=== PATIENT | female | born 1940 | race Caucasian/White ===

== ENCOUNTER 2018-07-18 16:35 | Emergency (ER) | payer MEDICARE ==
[2018-07-18 17:11] LABS: BASOPHILS % (AUTO) 0.5 %; EOSINOPHILS % (AUTO) 0.1 %; HGB - HEMOGLOBIN 14.6 g/dL (12.0-16.0); LYMPHOCYTES # (AUTO) 1.1 10^3/uL (1.5-3.5); LYMPHOCYTES % (AUTO) 14.1 %; MEAN CORPUSCULAR HEMOGLOBIN 31.2 pg (27.0-31.0); MEAN CORPUSCULAR HGB CONC 32.8 g/dL (32.0-36.0); MEAN CORPUSCULAR VOLUME 95.2 fL (81.0-99.0); MEAN PLATELET VOLUME 8.9 fL (7.9-10.8); MONOCYTES # (AUTO) 0.4 10^3/uL (0.0-1.0); MONOCYTES % (AUTO) 4.8 %; NEUTROPHILS # (AUTO) 6.5 10^3/uL (1.5-6.6); NEUTROPHILS % (AUTO) 80.5 %; PLT - PLATELET COUNT 213 10^3/uL (130-450); RED BLOOD COUNT 4.68 10^6/uL (4.20-5.40); RED CELL DISTRIBUTION WIDTH 13.6 % (12.0-15.0); WHITE BLOOD COUNT 8.1 x10^3/uL (4.8-10.8)
[2018-07-18 17:28] LABS: ALBUMIN 4.3 g/dL (3.2-5.5); ALBUMIN/GLOBULIN RATIO 1.6 (1.0-2.2); BILIRUBIN,TOTAL 0.7 mg/dL (0.2-1.0); CALCIUM 9.5 mg/dL (8.5-10.3); CREATININE 0.6 mg/dL (0.4-1.0); MAGNESIUM 2.1 mg/dL (1.7-2.8)
--- NOTE | 2018-07-18 17:29 | ED Physician Documentation ---
PD HPI CHEST PAIN - Stated complaint Stated Complaint: RAPID HEART BEAT SINCE 12PM - Chief complaint Chief Complaint: Cardiac - History obtained from History obtained from: Patient - History of Present Illness Timing - onset: Today (since 12pm she felt heart racing and hard. No CP or SOA but was lightheaded.) Review of Systems Ten Systems: 10 systems reviewed and negative Constitutional: denies: Fever, Chills Nose: denies: Rhinorrhea / runny nose, Congestion Cardiac: reports: Palpitations. 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 : Chronic bladder infection HEENT: Other Psych: None Musculoskeletal: Osteoarthritis Derm: None - Past Surgical History Past Surgical History: Yes General: Appendectomy, Other /UTILITIES EQUIPMENT REPAIRER: Hysterectomy HEENT: Cataracts, Other - Present Medications Home Medications: Ambulatory Orders Medication Instructions Recorded Confirmed Multivitamin [One-Daily 1 tab PO BID 05/04/14 05/03/16 Multi-Vitamin] raNITIdine [Zantac] 150 mg PO BID 05/04/14 05/03/16 Rivaroxaban [Xarelto] BID 05/15/16 - Allergies Allergies/Adverse Reactions: Allergies Allergy/AdvReac Type Severity Reaction Status Date / Time codeine AdvReac Emesis Verified 07/18/18 16:51 - Social History Does the pt smoke?: No Smoking Status: Never smoker Does the pt drink ETOH?: Yes Does the pt have substance abuse?: No - Family History Family history: reports: Non contributory - Immunizations Immunizations are current?: No Immunizations: TDAP >10years/unknown - POLST Patient has POLST: Yes POLST Status: Full Code PD ED PE NORMAL - Vitals Vital signs reviewed: Yes - General General: Alert and oriented X 3, No acute distress - HEENT HEENT: PERRL, EOMI - Neck Neck: Supple, no meningeal sign, No bony TTP - Cardiac Cardiac: No murmur, Other (rapid and irregular) - Respiratory Respiratory: No respiratory distress, Clear bilaterally - Abdomen Abdomen: Soft, Non tender - Back Back: No CVA TTP, No spinal TTP - Derm Derm: Normal color, Warm and dry - Extremities Extremities: No edema, No calf tenderness / cord - Neuro Neuro: Alert and oriented X 3, Normal speech - Psych Psych: Normal mood, Normal affect Results - Vitals Vitals: Vital Signs - 24 hr 07/18/18 07/18/18 07/18/18 16:45 17:01 17:39 Temperature 36.4 C L Heart Rate 167 H 159 H 136 H Respiratory 30 H 20 14 Rate Blood Pressure 110/83 H 110/84 H 118/61 O2 Saturation 95 97 96 07/18/18 07/18/18 07/18/18 17:46 18:40 18:42 Temperature Heart Rate 109 H 95 78 Respiratory 16 15 15 Rate Blood Pressure 107/67 111/87 H 109/58 L O2 Saturation 96 97 95 Oxygen O2 Source Room air - EKG (time done) 1647 Rate: Rate (enter#) (166) Rhythm: Atrial fibrillation [place]: Normal, LAD Ischemia: Non specific changes Computer interpretation: Agree with computer 1847 Rate: Rate (enter#) Rhythm: NSR (73), TERE [place]: LAD Intervals: Normal MD QRS: Normal Ischemia: Normal ST segments Computer interpretation: Agree with computer - Labs Labs: Laboratory Tests 07/18/18 07/18/18 07/18/18 16:56 16:56 16:56 WBC 8.1 RBC 4.68 Hgb 14.6 Hct 44.6 MCV 95.2 MCH 31.2 H MCHC 32.8 RDW 13.6 Plt Count 213 MPV 8.9 Neut # (Auto) 6.5 Lymph # (Auto) 1.1 L [place] # (Auto) 0.4 Eos # (Auto) 0.0 Baso # (Auto) 0.0 Absolute Nucleated RBC 0.00 Nucleated RBC % 0.0 Sodium 137 Potassium 3.7 Chloride 98 L Carbon Dioxide 29 Anion Gap 10.0 BUN 14 Creatinine 0.6 Estimated GFR (MDRD) 96 Glucose 145 H Calcium 9.5 Magnesium 2.1 Total Bilirubin 0.7 AST 24 ALT 12 Alkaline Phosphatase 58 Troponin I B-Natriuretic Peptide 108 H Total Protein 7.0 Albumin 4.3 Globulin 2.7 Albumin/Globulin Ratio 1.6 Lipase 25 TSH 07/18/18 07/18/18 16:56 16:56 WBC RBC Hgb Hct MCV MCH MCHC RDW Plt Count MPV Neut # (Auto) Lymph # (Auto) [place] # (Auto) Eos # (Auto) Baso # (Auto) Absolute Nucleated RBC Nucleated RBC % Sodium Potassium Chloride Carbon Dioxide Anion Gap BUN Creatinine Estimated GFR (MDRD) Glucose Calcium Magnesium Total Bilirubin AST ALT Alkaline Phosphatase Troponin I < 0.04 B-Natriuretic Peptide Total Protein Albumin Globulin Albumin/Globulin Ratio Lipase TSH 1.59 PD MEDICAL DECISION MAKING - ED course ED course: 77-year-old presents with acute rapid atrial fibrillation. She was given divided doses of diltiazem and on the second dose of diltiazem she converted to normal sinus rhythm before an ordered procainamide drip was started. Departure - Departure Disposition: Home, Self Care Clinical Impression: Atrial fibrillation Qualifiers: Atrial fibrillation type: paroxysmal Qualified Code(s): I48.0 - Paroxysmal atrial fibrillation Condition: Good Record reviewed to determine appropriate education?: Yes Instructions: Atrial Fibrillation Dc Comments: Follow-up with your physician who will either refer you to a data entry assistant or order an echocardiogram. Return for new or worsening symptoms. Continue your blood thinner.
[2018-07-18] MEDS ORDERED: diltiaZEM INJ 5 MG/ML VIAL IVP STA ×2 (17:30→18:13)
--- NOTE | 2018-07-18 17:51 | XRAY Report ---
Reason: chest pain Procedure Date: 07/18/2018 Accession Number: [id number] / [id number] Procedure: XR - Chest 1 View X-Ray CPT Code: 65896 FULL RESULT: EXAM: CHEST RADIOGRAPHY, PORTABLE 1 VIEW EXAM DATE: 07/18/2018 05:18 PM. CLINICAL HISTORY: Chest pain in a 77-year-old female. COMPARISON: Chest 2 view PA/LAT 05/15/2016 12:59 PM Chest angio 05/04/2016 1:16 AM. TECHNIQUE: 1706 hour AP upright portable view. FINDINGS: Lungs/Pleura: No focal opacities evident. No pleural effusion. No pneumothorax. Mild to moderate hyperinflation, as previously. Mediastinum: Within exam limitations, the cardiomediastinal contour is normal. No adenopathy or pulmonary vascular congestion. Other: Trachea is midline. Osseous structures are unremarkable. IMPRESSION: Mild to moderate hyperinflation, chronic and stable. No pneumonia, CHF or other demonstrated cause for chest pain. RADIA
[2018-07-18] MEDS ORDERED: PROCAINAMIDE 1,000 MG in SODIUM CHLORIDE 0.9% 240 ML IV STA (18:13)
[2018-07-18 19:14] VITALS: BP 101/63
== END 2018-07-18 19:13 | disposition home or self-care (01) ==
LOC: ED 16:35
DX: I48.0 Paroxysmal atrial fibrillation (principal); Z86.711 Personal history of pulmonary embolism; Z79.01 Long term (current) use of anticoagulants
CPT/HCPCS: 36415; 71045; 80053; 83690; 83735; 83880; 84443; 84484; 85025; 93005; 96374; 96376; 99283; 99284; J2690

== ENCOUNTER 2018-12-04 08:00 | Outpatient (CLI) | payer MEDICARE ==
[2018-12-04 13:12] LABS: BASOPHILS % (AUTO) 0.5 %; EOSINOPHILS # (AUTO) 0.1 10^3/uL (0.0-0.7); EOSINOPHILS % (AUTO) 1.2 %; HGB - HEMOGLOBIN 12.9 g/dL (12.0-16.0); LYMPHOCYTES # (AUTO) 1.4 10^3/uL (1.5-3.5); LYMPHOCYTES % (AUTO) 32.1 %; MEAN CORPUSCULAR HEMOGLOBIN 31.2 pg (27.0-31.0); MEAN CORPUSCULAR HGB CONC 33.6 g/dL (32.0-36.0); MEAN CORPUSCULAR VOLUME 92.9 fL (81.0-99.0); MONOCYTES # (AUTO) 0.4 10^3/uL (0.0-1.0); NEUTROPHILS # (AUTO) 2.5 10^3/uL (1.5-6.6); NEUTROPHILS % (AUTO) 56.2 %; PLT - PLATELET COUNT 209 10^3/uL (130-450); RED BLOOD COUNT 4.13 10^6/uL (4.20-5.40); RED CELL DISTRIBUTION WIDTH 13.8 % (12.0-15.0); WHITE BLOOD COUNT 4.4 x10^3/uL (4.8-10.8)
[2018-12-04 13:34] LABS: BUN - BLOOD UREA NITROGEN 16 mg/dL (6-20); CALCIUM 9.2 mg/dL (8.5-10.3); CARBON DIOXIDE - CO2 27 mmol/L (21-32); CHLORIDE 101 mmol/L (101-111); CHOLESTEROL 178 mg/dL; CREATININE 0.4 mg/dL (0.4-1.0); GFR - MDRD 154 (>89); GLUCOSE 101 mg/dL (70-100); HDL CHOLESTEROL 91 mg/dL; SODIUM 139 mmol/L (135-145)
== END 2018-12-04 23:59 | disposition home or self-care (01) ==
LOC: LAB.N 08:00
PROVIDERS: ATTEND Internal Medicine Cardiovascular Disease
DX: I48.0 Paroxysmal atrial fibrillation (principal); Z79.01 Long term (current) use of anticoagulants; E78.5 Hyperlipidemia, unspecified
CPT/HCPCS: 36415; 80048; 80061; 83721; 85025

== ENCOUNTER → 2020-01-06 | Outpatient (CLI) | payer MEDICARE ==
[2020-01-06 18:33] LABS: BASOPHILS % (AUTO) 0.7 %; EOSINOPHILS % (AUTO) 0.7 %; HGB - HEMOGLOBIN 13.3 g/dL (12.0-16.0); LYMPHOCYTES # (AUTO) 1.2 10^3/uL (1.5-3.5); LYMPHOCYTES % (AUTO) 25.8 %; MEAN CORPUSCULAR HEMOGLOBIN 32.2 pg (27.0-31.0); MEAN CORPUSCULAR HGB CONC 32.8 g/dL (32.0-36.0); MEAN CORPUSCULAR VOLUME 98.1 fL (81.0-99.0); MEAN PLATELET VOLUME 10.4 fL (7.9-10.8); MONOCYTES # (AUTO) 0.4 10^3/uL (0.0-1.0); MONOCYTES % (AUTO) 8.9 %; NEUTROPHILS # (AUTO) 2.9 10^3/uL (1.5-6.6); NEUTROPHILS % (AUTO) 63.5 %; PLT - PLATELET COUNT 238 10^3/uL (130-450); RED BLOOD COUNT 4.13 10^6/uL (4.20-5.40); RED CELL DISTRIBUTION WIDTH 13.2 % (12.0-15.0); WHITE BLOOD COUNT 4.6 x10^3/uL (4.8-10.8)
[2020-01-06 18:43] LABS: ALBUMIN 4.3 g/dL (3.2-5.5); ALBUMIN/GLOBULIN RATIO 1.9 (1.0-2.2); BILIRUBIN,TOTAL 0.6 mg/dL (0.2-1.0); CALCIUM 9.1 mg/dL (8.5-10.3); CREATININE 0.5 mg/dL (0.4-1.0); TOTAL PROTEIN 6.6 g/dL (6.7-8.2)
[2020-01-06 18:56] LABS: THYROID STIMULATING HORMONE 1.84 uIU/mL (0.34-5.60)
[2020-01-06 19:02] LABS: FERRITIN 36.7 ng/mL (11.0-306.8)
== END ==
LOC: LAB.WCP 10:59
PROVIDERS: ATTEND Family Medicine
DX: R42 Dizziness and giddiness (principal)
CPT/HCPCS: 36415; 80053; 82728; 84443; 85025

== ENCOUNTER 2021-11-09 14:48 | Emergency (ER) | payer MEDICARE ==
[2021-11-09] MEDS ORDERED: diltiaZEM INJ 5 MG/ML VIAL IVP STA ×2 (15:13→15:47)
--- NOTE | 2021-11-09 15:15 | ED Physician Documentation ---
PD HPI CHEST PAIN - Stated complaint Stated Complaint: RAPID HEART RATE - Chief complaint Chief Complaint: Cardiac - History obtained from History obtained from: Patient - Additional information Additional information: 80-year-old woman with history of paroxysmal atrial fibrillation felt herself go into symptomatic A. fib at 130 while doing grocery shopping today. She just feels a rapid pounding of the heart. She also has a history of SVT so tried vagal maneuvers without success. There is no pain or shortness of breath. She has been compliant with her anticoagulation. 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 : Chronic bladder infection HEENT: Other Psych: None Musculoskeletal: Osteoarthritis Derm: None - Past Surgical History Past Surgical History: Yes General: Appendectomy, Other /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: Hysterectomy HEENT: Cataracts, Other - Present Medications Home Medications: Ambulatory Orders Medication Instructions Recorded Confirmed Multivitamin [One-Daily 1 tab PO BID 05/04/14 11/09/21 Multi-Vitamin] Diltiazem HCl [Diltiazem 12Hr ER] 120 mg PO DAILY 11/09/21 11/09/21 Rivaroxaban [Xarelto] 20 mg PO DAILY 11/09/21 11/09/21 Rosuvastatin Calcium [Crestor] 5 mg PO DAILY 11/09/21 11/09/21 - Allergies Allergies/Adverse Reactions: Allergies Allergy/AdvReac Type Severity Reaction Status Date / Time codeine AdvReac Emesis Verified 11/09/21 14:54 - Social History Does the pt smoke?: No Smoking Status: Never smoker Does the pt drink ETOH?: Yes Does the pt have substance abuse?: No - Immunizations Immunizations are current?: No Immunizations: TDAP >10years/unknown - POLST Patient has POLST: Yes POLST Status: Full Code PD ED PE NORMAL - Vitals Vital signs reviewed: Yes - General General: Alert and oriented X 3, No acute distress - HEENT HEENT: PERRL, EOMI - Neck Neck: Supple, no meningeal sign, No bony TTP - Cardiac Cardiac: No murmur, Other (Rapid and irregular without murmur) - Respiratory Respiratory: No respiratory distress, Clear bilaterally - Abdomen Abdomen: Normal bowel sounds, Soft, Non tender - Back Back: No CVA TTP, No spinal TTP - Derm Derm: Normal color, Warm and dry - Extremities Extremities: No edema, No calf tenderness / cord - Neuro Neuro: Alert and oriented X 3, Normal speech Results - Vitals Vitals: Vital Signs - 24 hr 11/09/21 11/09/21 11/09/21 14:54 14:57 15:27 Temperature 36.5 C 36.5 C Heart Rate 123 H 123 H 110 H Respiratory 18 18 12 Rate Blood Pressure 153/89 H 153/89 H 128/82 H O2 Saturation 98 98 96 11/09/21 11/09/21 11/09/21 15:30 16:00 16:30 Temperature Heart Rate 100 129 H 122 H Respiratory 16 29 H 20 Rate Blood Pressure 128/82 H 126/71 124/75 O2 Saturation 96 97 93 11/09/21 11/09/21 17:00 17:21 Temperature 36.5 C Heart Rate 72 76 Respiratory 15 24 Rate Blood Pressure 98/78 112/66 O2 Saturation 97 96 Oxygen O2 Source Room air - EKG (time done) 1459 Rate: Rate (enter#) (164) Rhythm: Atrial fibrillation [place]: Normal QRS: Low voltage Ischemia: Non specific changes Computer interpretation: Agree with computer - Labs Labs: Laboratory Tests 11/09/21 11/09/21 15:10 15:10 WBC 6.7 RBC 4.61 Hgb 14.6 Hct 44.6 MCV 96.7 MCH 31.7 H MCHC 32.7 RDW 12.9 Plt Count 223 MPV 10.2 Neut # (Auto) 4.5 Lymph # (Auto) 1.6 [place] # (Auto) 0.5 Eos # (Auto) 0.1 Baso # (Auto) 0.0 Absolute Nucleated RBC 0.00 Nucleated RBC % 0.0 Sodium 139 Potassium 3.3 L Chloride 97 L Carbon Dioxide 26 Anion Gap 16.0 H BUN 13 Creatinine 0.5 Estimated GFR (MDRD) 118 Glucose 97 Calcium 9.8 Magnesium 2.1 Total Bilirubin 1.4 H AST 23 ALT 13 Alkaline Phosphatase 62 Total Protein 7.9 Albumin 5.0 Globulin 2.9 Albumin/Globulin Ratio 1.7 Lipase 30 PD MEDICAL DECISION MAKING - ED course ED course: 80-year-old woman presents with paroxysmal rapid atrial fibrillation which is quite symptomatic. She is anticoagulated and the time of onset is well elucidated on history of being just in the last few hours. She was administered 2 divided doses of diltiazem with rate control but not rhythm control and she was still symptomatic. Procainamide drip was started and she converted after about 15 minutes and the drip was paused. She was asymptomatic at that juncture and was observed for a while longer without ectopy or symptoms. Departure - Departure Disposition: 01 Home, Self Care Clinical Impression: Atrial fibrillation Qualifiers: Atrial fibrillation type: paroxysmal Qualified Code(s): I48.0 - Paroxysmal atrial fibrillation Condition: Good Record reviewed to determine appropriate education?: Yes Instructions: Atrial Fibrillation Dc Comments: Continue your current medications. Reasonable to follow-up with your retail merchandising specialist to discuss if a "pill in the pocket" regimen or more long-term antiarrhythmic would be appropriate. Call them for an appointment. Return if worse. Discharge Date/Time: 11/09/21 17:21
[2021-11-09 15:16] LABS: BASOPHILS % (AUTO) 0.6 %; EOSINOPHILS # (AUTO) 0.1 10^3/uL (0.0-0.7); HCT - HEMATOCRIT 44.6 % (37.0-47.0); HGB - HEMOGLOBIN 14.6 g/dL (12.0-16.0); LYMPHOCYTES # (AUTO) 1.6 10^3/uL (1.5-3.5); LYMPHOCYTES % (AUTO) 24.3 %; MEAN CORPUSCULAR HEMOGLOBIN 31.7 pg (27.0-31.0); MEAN CORPUSCULAR HGB CONC 32.7 g/dL (32.0-36.0); MEAN CORPUSCULAR VOLUME 96.7 fL (81.0-99.0); MEAN PLATELET VOLUME 10.2 fL (7.9-10.8); MONOCYTES # (AUTO) 0.5 10^3/uL (0.0-1.0); NEUTROPHILS # (AUTO) 4.5 10^3/uL (1.5-6.6); PLT - PLATELET COUNT 223 10^3/uL (130-450); RED BLOOD COUNT 4.61 10^6/uL (4.20-5.40); RED CELL DISTRIBUTION WIDTH 12.9 % (12.0-15.0); WHITE BLOOD COUNT 6.7 x10^3/uL (4.8-10.8)
[2021-11-09 15:29] LABS: ALBUMIN/GLOBULIN RATIO 1.7 (1.0-2.2); BILIRUBIN,TOTAL 1.4 mg/dL (0.2-1.0); CALCIUM 9.8 mg/dL (8.5-10.3); CREATININE 0.5 mg/dL (0.4-1.0); MAGNESIUM 2.1 mg/dL (1.7-2.8); POTASSIUM 3.3 mmol/L (3.5-5.0); TOTAL PROTEIN 7.9 g/dL (6.7-8.2)
[2021-11-09] MEDS ORDERED: PROCAINAMIDE 1,000 MG in SODIUM CHLORIDE 0.9% 240 ML IV STA (16:10)
[2021-11-09 17:22] VITALS: BP 112/66
== END 2021-11-09 17:21 | disposition home or self-care (01) ==
LOC: ED 14:48
DX: I48.0 Paroxysmal atrial fibrillation (principal); Z86.711 Personal history of pulmonary embolism; Z79.01 Long term (current) use of anticoagulants
CPT/HCPCS: 36415; 80053; 83690; 83735; 85025; 93005; 96374; 96375; 99282; 99284; J2690

== ENCOUNTER 2021-12-13 15:40 | Outpatient (CLI) | payer MEDICARE ==
[2021-12-13 17:22] LABS: CALCIUM 9.8 mg/dL (8.5-10.3); CREATININE 0.6 mg/dL (0.4-1.0); POTASSIUM 4.3 mmol/L (3.5-5.0)
== END 2021-12-13 15:41 | disposition home or self-care (01) ==
LOC: LAB.N 15:40
PROVIDERS: ATTEND Internal Medicine Cardiovascular Disease
DX: I36.1 Nonrheumatic tricuspid (valve) insufficiency (principal)
CPT/HCPCS: 36415; 80048

== ENCOUNTER 2022-10-25 10:47 | Emergency (ER) | payer MEDICARE ==
--- NOTE | 2022-10-25 11:25 | XRAY Report ---
PROCEDURE: Chest 1 View X-Ray INDICATIONS: Chest pain TECHNIQUE: One view of the chest was acquired. COMPARISON: 07/18/2018 FINDINGS: Surgical changes and devices: None. Lungs and pleura: No pleural effusions or pneumothorax. Lungs are clear. Mediastinum: Mediastinal contours appear normal. Heart size is normal. Bones and chest wall: No suspicious bony lesions. Overlying soft tissues appear unremarkable. IMPRESSION: No acute radiographic abnormality. Reviewed by: Amol Moore MD on 10/25/2022 11:23 AM PDT Approved by: Amol Moore MD on 10/25/2022 11:23 AM PDT Station ID: [id number]
[2022-10-25 11:26] LABS: BASOPHILS % (AUTO) 0.8 %; EOSINOPHILS # (AUTO) 0.1 10^3/uL (0.0-0.7); EOSINOPHILS % (AUTO) 1.6 %; HCT - HEMATOCRIT 45.5 % (37.0-47.0); HGB - HEMOGLOBIN 14.7 g/dL (12.0-16.0); LYMPHOCYTES # (AUTO) 0.8 10^3/uL (1.5-3.5); LYMPHOCYTES % (AUTO) 21.2 %; MEAN CORPUSCULAR HEMOGLOBIN 30.7 pg (27.0-31.0); MEAN CORPUSCULAR HGB CONC 32.3 g/dL (32.0-36.0); MEAN PLATELET VOLUME 9.7 fL (7.9-10.8); MONOCYTES # (AUTO) 0.3 10^3/uL (0.0-1.0); MONOCYTES % (AUTO) 8.9 %; NEUTROPHILS # (AUTO) 2.5 10^3/uL (1.5-6.6); NEUTROPHILS % (AUTO) 67.2 %; PLT - PLATELET COUNT 213 10^3/uL (130-450); RED BLOOD COUNT 4.79 10^6/uL (4.20-5.40); RED CELL DISTRIBUTION WIDTH 13.3 % (12.0-15.0); WHITE BLOOD COUNT 3.7 x10^3/uL (4.8-10.8)
[2022-10-25 11:51] LABS: ALBUMIN 4.9 g/dL (3.2-5.5); ALBUMIN/GLOBULIN RATIO 1.8 (1.0-2.2); CALCIUM 9.8 mg/dL (8.5-10.3); CREATININE 0.5 mg/dL (0.4-1.0); POTASSIUM 3.8 mmol/L (3.5-5.0); TOTAL PROTEIN 7.7 g/dL (6.7-8.2)
[2022-10-25] MEDS ORDERED: diltiaZEM INJ 5 MG/ML VIAL IVP STA ×2 (13:14→14:06)
--- NOTE | 2022-10-25 13:16 | ED Physician Documentation ---
History of Present Illness - Stated complaint Stated Complaint: RAPID HEART BEAT - Chief complaint Chief Complaint: Cardiac - Additonal information Additional information: 81-year-old female presents emergency department for evaluation of palpitations and elevated heart rate. She does have a history of paroxysmal atrial fib. She currently takes diltiazem 120 long-acting daily. She occasionally will have runs of tachycardia which in the past she has been able to use the salt from maneuvers as well as ice water to break the episodes of tachycardia. That did not work this morning. She took a dose of flecainide which was the first time ever that she had taken for tachycardia and found that it did not reduce her heart rate. It has remained fixed in sinus rhythm at 110. She does have a history of bilateral pulmonary embolism. She is on Xarelto for life. She denies missing any doses of diltiazem or Xarelto. Orthostatics here in the ER negative. No chest pain. Review of Systems Constitutional: denies: Fever, Chills Eyes: reports: Reviewed and negative Cardiac: reports: Palpitations. 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 : Chronic bladder infection HEENT: Other Psych: None Musculoskeletal: Osteoarthritis Derm: None - Past Surgical History Past Surgical History: Yes General: Appendectomy, Other /SMOKE CHASER: Hysterectomy HEENT: Cataracts, Other - Present Medications Home Medications: Ambulatory Orders Medication Instructions Recorded Confirmed Multivitamin [One-Daily 1 tab PO BID 05/04/14 11/09/21 Multi-Vitamin] Diltiazem HCl [Diltiazem 12Hr ER] 120 mg PO DAILY 11/09/21 11/09/21 Rivaroxaban [Xarelto] 20 mg PO DAILY 11/09/21 11/09/21 Rosuvastatin Calcium [Crestor] 2.5 mg PO DAILY 11/09/21 11/09/21 Flecainide Acetate 50 mg PO PRN PRN 10/25/22 10/25/22 Flecainide [Tambocar] 50 mg PO Q12H #60 tablet 10/25/22 Spironolactone [Aldactone] 25 mg PO DAILY 10/25/22 10/25/22 - Allergies Allergies/Adverse Reactions: Allergies Allergy/AdvReac Type Severity Reaction Status Date / Time Sulfa (Sulfonamide Allergy Unknown Verified 10/25/22 11:01 Antibiotics) codeine AdvReac Emesis Verified 10/25/22 11:01 - Social History Does the pt smoke?: No Smoking Status: Never smoker Does the pt drink ETOH?: Yes Does the pt have substance abuse?: No - Immunizations Immunizations are current?: No Immunizations: TDAP >10years/unknown - POLST Patient has POLST: Yes POLST Status: Full Code PD ED PE NORMAL - General General: Alert and oriented X 3, No acute distress, Well developed/nourished - HEENT HEENT: Atraumatic, Moist mucous membranes - Neck Neck: Supple, no meningeal sign, No adenopathy - Cardiac Cardiac: RRR (Mild tachycardia. Fixed rate 110 on the monitor. Sinus), No murmur - Respiratory Respiratory: No respiratory distress, Clear bilaterally - Abdomen Abdomen: Normal bowel sounds, Soft - Back Back: No CVA TTP - Derm Derm: Normal color, Warm and dry - Extremities Extremities: No deformity - Neuro Neuro: Alert and oriented X 3, account consultant 2-12 intact Eye Opening: Spontaneous Motor: Obeys Commands Verbal: Oriented GCS Score: 15 Results - Vitals Vitals: Vital Signs - 24 hr 10/25/22 10/25/22 10/25/22 10:51 12:52 13:02 Temperature 36.5 C Heart Rate 112 H 108 H Heart Rate [ 107 H Sitting] Heart Rate [ 111 H Standing] Heart Rate [ 108 H Supine] Respiratory 20 17 Rate Blood Pressure 153/79 H 125/85 H Blood Pressure 136/92 H [Sitting] Blood Pressure 121/83 H [Standing] Blood Pressure 129/85 H [Supine] O2 Saturation 98 100 10/25/22 10/25/22 10/25/22 14:26 14:27 14:29 Temperature Heart Rate 114 H 113 H 110 H Heart Rate [ Sitting] Heart Rate [ Standing] Heart Rate [ Supine] Respiratory 16 16 Rate Blood Pressure 123/80 119/77 118/73 Blood Pressure [Sitting] Blood Pressure [Standing] Blood Pressure [Supine] O2 Saturation 97 97 05/02/23 05/02/23 05/02/23 14:30 14:31 15:30 Temperature Heart Rate 113 H 114 H 116 H Heart Rate [ Sitting] Heart Rate [ Standing] Heart Rate [ Supine] Respiratory 25 H Rate Blood Pressure 129/85 H 123/80 119/76 Blood Pressure [Sitting] Blood Pressure [Standing] Blood Pressure [Supine] O2 Saturation 96 10/25/22 10/25/22 10/25/22 15:37 15:47 16:00 Temperature Heart Rate 115 H 109 H 110 H Heart Rate [ Sitting] Heart Rate [ Standing] Heart Rate [ Supine] Respiratory 20 18 18 Rate Blood Pressure 125/80 135/92 H 124/77 Blood Pressure [Sitting] Blood Pressure [Standing] Blood Pressure [Supine] O2 Saturation 98 96 97 10/25/22 10/25/22 10/25/22 16:49 17:14 17:53 Temperature Heart Rate 114 H 113 H 112 H Heart Rate [ Sitting] Heart Rate [ Standing] Heart Rate [ Supine] Respiratory 16 18 24 Rate Blood Pressure 118/81 H 120/76 122/92 H Blood Pressure [Sitting] Blood Pressure [Standing] Blood Pressure [Supine] O2 Saturation 99 96 99 10/25/22 10/25/22 18:00 18:01 Temperature Heart Rate 81 81 Heart Rate [ Sitting] Heart Rate [ Standing] Heart Rate [ Supine] Respiratory 21 21 Rate Blood Pressure 114/77 114/77 Blood Pressure [Sitting] Blood Pressure [Standing] Blood Pressure [Supine] O2 Saturation 96 96 Oxygen O2 Source Room air - EKG (time done) 1055 EKG releavant findings:: EKG personally interpreted by author of this note. Relevant findings are: Rate: Rate (enter#), Tachy Rhythm: Sinus tachycardia Intervals: Normal AR, RBBB. No: Prolonged QT QRS: Normal Ischemia: Non specific changes Compare to prior EKG: Old EKG unavailable Computer interpretation: Agree with computer 1757 EKG releavant findings:: EKG personally interpreted by author of this note. Relevant findings are: Rate: Rate (enter#) (75) Rhythm: NSR [place]: LAD Intervals: Normal AR QRS: Normal Ischemia: Normal ST segments Compare to prior EKG: Changed from prior EKG Computer interpretation: Agree with computer - Labs Labs: Laboratory Tests 10/25/22 10/25/2210/25/23 11:21 11:21 11:21 WBC 3.7 L RBC 4.79 Hgb 14.7 Hct 45.5 MCV 95.0 MCH 30.7 MCHC 32.3 RDW 13.3 Plt Count 213 MPV 9.7 Neut # (Auto) 2.5 Lymph # (Auto) 0.8 L [place] # (Auto) 0.3 Eos # (Auto) 0.1 Baso # (Auto) 0.0 Absolute Nucleated RBC 0.00 Nucleated RBC % 0.0 Sodium 138 Potassium 3.8 Chloride 97 L Carbon Dioxide 27 Anion Gap 14.0 H BUN 15 Creatinine 0.5 Estimated GFR (MDRD) 118 Glucose 106 H Calcium 9.8 Total Bilirubin 1.0 AST 30 ALT 15 Alkaline Phosphatase 60 Troponin I High Sens 7.3 Total Protein 7.7 Albumin 4.9 Globulin 2.8 Albumin/Globulin Ratio 1.8 Lipase 35 - Rads (name of study) cxr Relevant Findings:: Final report received (No acute radiographic abnormality) Procedures - Cardioversion - Major 1744 Time of attempt: 17:45 Indication: Other (atrial flutter) Risks, benefits, alternatives explained to: Pt, POA Prep: IV, O2 CS via: Pads Sync: Biphasic, 50j Post cardioversion rhythm: NSR Performed by: ED PD Medical Decision Making - ED course Complexity details: reviewed results, re-evaluated patient, considered differential, d/w patient ED course: 81-year-old female presents emergency department for evaluation of sustained elevated heart rate. She does have a history of paroxysmal A-fib for which she takes diltiazem 120 daily. She is also on Xarelto secondary to history of PEs. Due to the recurrent palpitations that were not responsive to ice that she did take a dose of flecainide which had been advised by her cardiology clinic. Despite this she continues to have a heart rate that shows sinus rhythm sustained rate of 110. Here in the ER her EKG is nonischemic though does show sinus tachycardia. Troponin was negative. She has no chest pain or shortness of air. We did check orthostatics which were negative. Given the history of being on Cardizem I did attempt first a dose of 10 mg IV followed by a second 10 mg dose which did not slow the heart rate in any effective measure. Subsequently I ordered 5 mg of labetalol. without reduction in HR I did obtain a CBC and electrolytes which per my interpretation shows no acute worrisome findings. Chest x-ray was without findings of pneumonia, pleural effusion, cardiomegaly or pneumothorax Clinically the patient appears to be tolerating the tachycardia without significant hemodynamic effects but I am reaching out to [facility] cardiology clinics to determine further steps based on history 1700: Spoke on the phone with Dr. Limon cardiology on-call at [facility]. He was able to review the EKG originally obtained. He notes some biphasic T waves in lead II. Though he realizes that this likely shows sinus rhythm based on her history he feels that she likely is in a 2-1 conduction of atrial flutter. He would recommend that we attempt a synchronized cardioversion. If successful the patient should be placed on flecainide to 50 mg twice daily and follow-up with Dr. Gregorio her software engineer sales. 1800: We were able to successfully cardiovert her using propofol for procedural sedation. Synchronized cardioversion with 50 J immediately Cardioverted her to a sinus rhythm with a rate in the 70s. Repeat EKG confirms sinus rhythm. No further Biphasic T waves in lead II. At this time the patient is awake and hemodynamically stable. Feeling markedly better. She will be discharged home w ith recommendation begin taking flecainide 50 mg twice daily and follow-up with cardiology. - Critical Care Time(min): 30 Time Includes: Direct patient care, Review records Data interpretation: Labs, Prior EKG Procedures included in critical care time: See progress note Departure - Departure Disposition: 01 Home, Self Care Clinical Impression: Atrial flutter Qualifiers: Atrial flutter type: unspecified Qualified Code(s): I48.92 - Unspecified atrial flutter Condition: Stable Record reviewed to determine appropriate education?: Yes Prescriptions: Flecainide [Tambocar] 50 mg PO Q12H #60 tablet Comments: You came to the emergency department today because you have had an elevated heart rate that began this morning. We attempted many medications to get control of your heart rate but were unsuccessful. We did consult with [facility] cardiology physicians who are able to more closely evaluate your EKG and felt that you were in atrial flutter. They did recommend cardioversion. As such we did do synchronized cardioversion at the bedside. We utilized only 50 J of electricity. You were able to immediately convert to sinus rhythm. In conversation with a software engineer sales at [facility] he would recommend you begin taking flecainide 50 mg twice daily. Please fill this prescription tomorrow and begin taking as directed. Is very importantly follow-up with Dr. Etienne your software engineer sales at [facility] clinics. I do recommend follow-up within the next week or 2. If at any point you have worsening symptoms, shortness of air or any fainting episodes or return of the tachycardia then please return to the ER for second evaluation
[2022-10-25] MEDS ORDERED: METOPROLOL 5 MG/5 ML VIAL IVP STA (15:10)
[2022-10-25] MEDS ORDERED: PROPOFOL 200 MG/20 ML VIAL IVP STA (17:36)
[2022-10-25 18:52] VITALS: BP 117/69
== END 2022-10-25 18:55 | disposition home or self-care (01) ==
LOC: ED 10:47
DX: I48.92 Unspecified atrial flutter (principal); Z79.01 Long term (current) use of anticoagulants
CPT/HCPCS: 36415; 80053; 83690; 84484; 85025; 92960; 93005; 99291

== ENCOUNTER 2023-04-17 09:27 | Outpatient (CLI) | payer MEDICARE ==
[2023-04-17 12:36] LABS: BASOPHILS # (AUTO) 0.1 10^3/uL (0.0-0.1); BASOPHILS % (AUTO) 1.3 %; EOSINOPHILS # (AUTO) 0.1 10^3/uL (0.0-0.7); EOSINOPHILS % (AUTO) 3.5 %; HCT - HEMATOCRIT 40.1 % (37.0-47.0); HGB - HEMOGLOBIN 13.1 g/dL (12.0-16.0); LYMPHOCYTES # (AUTO) 0.8 10^3/uL (1.5-3.5); MEAN CORPUSCULAR HGB CONC 32.7 g/dL (32.0-36.0); MEAN PLATELET VOLUME 10.2 fL (7.9-10.8); MONOCYTES # (AUTO) 0.5 10^3/uL (0.0-1.0); MONOCYTES % (AUTO) 12.8 %; NEUTROPHILS # (AUTO) 2.5 10^3/uL (1.5-6.6); NEUTROPHILS % (AUTO) 61.1 %; PLT - PLATELET COUNT 225 10^3/uL (130-450); RED BLOOD COUNT 4.09 10^6/uL (4.20-5.40); RED CELL DISTRIBUTION WIDTH 12.8 % (12.0-15.0)
[2023-04-17 12:50] LABS: BUN - BLOOD UREA NITROGEN 19 mg/dL (6-20); CALCIUM 9.6 mg/dL (8.5-10.3); CARBON DIOXIDE - CO2 31 mmol/L (21-32); CHLORIDE 102 mmol/L (101-111); CHOL/HDL RATIO 2.3 (<4.4); CHOLESTEROL 208 mg/dL; CREATININE 0.7 mg/dL (0.6-1.3); GFR - MDRD 80 (>89); GLUCOSE 94 mg/dL (74-104); HDL CHOLESTEROL 92 mg/dL; LDL CHOLESTEROL,CALCULATED 105 mg/dL; LDL/HDL RATIO 1.1 (<4.4); POTASSIUM 4.2 mmol/L (3.5-4.5); SODIUM 137 mmol/L (135-145); TRIGLYCERIDES 57 mg/dL (48-352); VLDL CHOLESTEROL 11 mg/dL
== END 2023-04-17 09:28 | disposition home or self-care (01) ==
LOC: LAB.N 09:27
PROVIDERS: ATTEND Internal Medicine Cardiovascular Disease
DX: E78.5 Hyperlipidemia, unspecified (principal); Z79.01 Long term (current) use of anticoagulants; I48.0 Paroxysmal atrial fibrillation
CPT/HCPCS: 36415; 80048; 80061; 83721; 85025

== ENCOUNTER 2023-06-29 15:11 | Outpatient (CLI) | payer MEDICARE ==
[2023-06-29 17:57] LABS: CRP - C-REACTIVE PROTEIN < 0.5 mg/dL (<0.5)
== END 2023-06-29 15:12 | disposition home or self-care (01) ==
LOC: LAB.N 15:11
PROVIDERS: ATTEND Family Medicine
DX: R79.89 Other specified abnormal findings of blood chemistry (principal)
CPT/HCPCS: 36415; 82607; 85651; 86140